=== PATIENT | female | born 1950 | race Caucasian/White ===

== ENCOUNTER 2018-01-23 09:05 | Emergency (ER) | payer OTHER ==
[~2018-01-23] VITALS: Ht 152.4 cm; Wt 62.1 kg
[2018-01-23] MEDS ORDERED: GLUCOPHAGE XR500 MG PO (09:12)
[2018-01-23] MEDS ORDERED: ATENOLOL 100MG100 MG PO (09:12)
[2018-01-23] MEDS ORDERED: LISINOPRIL-HCT1 EAC2 PO (09:13)
[2018-01-23] MEDS ORDERED: CLONIDINE HCL0.2 M2 PO (09:13)
[2018-01-23] MEDS ORDERED: LISINOPRIL10 MG PO (09:14)
[2018-01-23] MEDS ORDERED: BUPROPION HCL200 M1 PO (09:14)
[2018-01-23] MEDS ORDERED: HYDROCHLOROTHIA25 M2 PO (09:14)
[2018-01-23] MEDS ORDERED: ZOCOR40 MG PO (09:15)
[2018-01-23 09:24] LABS: HEMATOCRIT 42.7 % (37.0-47.0); HEMOGLOBIN 14.3 gm/dL (12.0-15.0); MCH 28.7 pg (26.0-34.0); MCHC 33.6 g/dL (28.0-37.0); MCV 85.6 fL (80.0-100.0); MPV 7.6 fl. (7.2-11.1); NUCLEATED RBCS 0 /100WBC; PLATELET COUNT* 242 thou/uL (150-400); RBC 4.99 mil/uL (4.20-5.00); RDW-CV 14.7 % (10.5-14.5); WBC 12.1 thou/uL (4.0-11.0)
[2018-01-23 09:34] LABS: APTT 27.5 Seconds (25.0-31.3)
[2018-01-23 09:35] LABS: ANION GAP 12 mmol/L (7-16); BUN 17 mg/dL (7-18); CALCIUM 9.4 mg/dL (8.5-10.1); CHLORIDE 104 mmol/L (98-107); CO2 24 mmol/L (21-32); CREATININE 0.9 mg/dL (0.6-1.3); GLUCOSE 125 mg/dL (70-99); POTASSIUM 3.5 mmol/L (3.5-5.1); SODIUM 140 mmol/L (136-145)
[2018-01-23 09:48] LABS: ALBUMIN 3.7 g/dL (3.4-5.0); ALKALINE PHOSPHATASE 122 U/L (46-116); LIPASE 240 U/L (73-393); NT-PRO BRAIN NAT PEPTIDE 562 pg/mL (<300); SGOT 19 U/L (15-37); SGPT 26 U/L (30-65); TOTAL BILIRUBIN 0.2 mg/dL (<0.1-1.0); TOTAL PROTEIN 7.5 g/dL (6.4-8.2); TROPONIN-I LEVEL <0.06 ng/mL (<0.06)
[2018-01-23 10:00] LABS: ABSOLUTE EOSINOPHILS 0.1 thou/uL (0.0-0.7); ABSOLUTE LYMPHOCYTES 0.5 thou/uL (0.8-5.3); ABSOLUTE NEUTROPHILS 11.5 thou/uL (1.6-8.1); PLATELET ESTIMATE ADEQUATE
[2018-01-23] MEDS ORDERED: VALIUM2 MG PO (12:55)
[2018-01-23] MEDS ORDERED: AMOXICILLIN 50500 M1 PO (12:55)
[2018-01-23 13:55] VITALS: BP 143/68
--- NOTE | 2018-01-25 15:31 | EKG ---
[place] [address] ELECTROCARDIOGRAM REPORT Name: KAPIL VARGAS Room: [facility]#: [id number] Admission: 01/23/18 Attend Phys: Discharge: 01/23/18 Date of : 54 Report #: [id number] THIS REPORT FOR: //name// [facility] ED Test Date: 2018-01-23 Test Time: 09:11:04 Pat Name: KAPIL VARGAS Department: Room: Gender: F Actuarial Assistant: Peyton TREJO : 1950 Requested By: Gavi Esqueda Order Number: [id number] MD: Basilio Brooks Measurements Intervals [place] Rate: 69 P: 42 MN: 216 QRS: 15 QRSD: 87 T: 72 QT: 405 QTc: 434 Interpretive Statements Sinus rhythm Borderline prolonged MN interval Probable left atrial enlargement Compared to ECG 04/29/2008 17:52:35 Sinus bradycardia no longer present Electronically Signed On 01-25-2018 15:31:04 [employer]IOR [employer]OUNT [employer]NAGER by Basilio Brooks [email or web address] <ELECTRONICALLY SIGNED> By: Basilio Brooks MD, [facility] 01/25/18 1531 0 0 Basilio Brooks MD, [facility] /EPI
== END 2018-01-23 13:56 | disposition home or self-care (01) ==
LOC: M.ERS 09:05
PROVIDERS: Personal Emergency Response Attendant
DX: R42 Dizziness and giddiness (principal); R11.10 Vomiting, unspecified; E78.00 Pure hypercholesterolemia, unspecified; I10 Essential (primary) hypertension; F32.9 Major depressive disorder, single episode, unspecified; E11.9 Type 2 diabetes mellitus without complications; F17.210 Nicotine dependence, cigarettes, uncomplicated